=== PATIENT | male | born 1975 | race Caucasian/White ===

== ENCOUNTER 2021-12-12 20:59 | Inpatient (IN) ==
[2021-12-12 21:38] LABS: Bilirubin,Urine Negative (Negative); Blood,Urine Negative (Negative); Clarity,Urine Clear (Clear); Color,Urine Light-Yellow (Yellow); Glucose,Urine (UA) Normal (Normal); Ketones,Urine Negative (Negative); Leukocyte Esterase,Urine Negative (Negative); Mucus,Urine Few per lpf (None-Few); Nitrite,Urine Negative (Negative); PH,Urine 6.5 pH Units (5.0-8.0); Protein,Urine 30 mg/dL (Neg-Trace); RBC,Urine 0-3 per hpf (0-3); Specific Gravity,Urine 1.021 (1.010-1.025); Sperm,Urine Present per hpf (None Seen); Urobilinogen,Urine Normal (Normal); WBC,Urine 0-3 per hpf (0-3)
[2021-12-12 21:41] LABS: Basophils % 0.6 %; Eosinophils % 0.5 %; Hemoglobin 14.6 g/dL (12.9-16.9); Immature Granulocytes % 0.8 % (0-4); Lymphocytes # 2.3 K/mcL (0.6-4.6); Lymphocytes % 35.2 %; Mean Corpuscular HGB Conc 35.6 g/dL (31.6-35.5); Mean Corpuscular Hemoglobin 31.3 pg (28.0-33.3); Mean Corpuscular Volume 87.8 fL (83.0-100.0); Mean Platelet Volume 9.3 fL (9.4-12.4); Monocytes # 0.5 K/mcL (0.0-1.3); Monocytes % 7.5 %; Neutrophils # 3.6 K/mcL (1.6-8.9); Platelet Count 319 K/mcL (140-400); Red Blood Count 4.67 M/mcL (4.19-5.50); Red Cell Distribution Width 13.1 % (11.5-14.5); Segmented Neutrophils % 55.4 %; White Blood Count 6.5 K/mcL (4.3-11.1)
[2021-12-12 21:44] LABS: Amphetamine Screen,Urine Negative ng/mL (Cutoff=1000); Barbiturate Screen,Urine Negative ng/mL (Cutoff=200); Benzodiazepines Screen,Urine Negative ng/mL (Cutoff=200); Cannabinoid Screen,Urine Negative ng/mL (Cutoff = 50); Cocaine Screen,Urine Negative ng/mL (Cutoff= 300); Opiate Screen,Urine Negative ng/mL (Cutoff=300); Phencyclidine Screen,Urine Negative ng/mL (Cutoff=25)
[2021-12-12 21:48] LABS: Estimated Average Glucose 111 mg/dl; Hemoglobin A1C 5.5 %
[2021-12-12 21:56] LABS: Acetaminophen < 10 mcg/mL (10-20); Alanine Aminotransferase 28 Units/L (7-52); Albumin 4.2 g/dL (3.5-5.7); Albumin/Globulin Ratio 1.6 (1.1-2.2); Alkaline Phosphatase 75 Units/L (34-104); Aspartate Amino Transferase 29 Units/L (13-39); BUN/Creatinine Ratio 18 (6-26); Bilirubin,Direct 0.1 mg/dL (0.0-0.2); Bilirubin,Indirect 0.3 mg/dL (0.0-1.0); Bilirubin,Total 0.4 mg/dL (0.3-1.0); Blood Urea Nitrogen 13 mg/dL (6-20); Calcium 8.7 mg/dL (8.6-10.3); Carbon Dioxide 27 mEq/L (23-29); Chloride 103 mEq/L (98-107); Chol/HDL Ratio 2.5 (0-4.9); Cholesterol 182 mg/dL (< 200); Ethanol 268 mg/dL (Less than 10); Globulin 2.6 g/dL (2.4-3.5); Glucose 111 mg/dL (70-105); HDL Cholesterol 74 mg/dL (40-59); LDL Cholesterol,Calculated 58 mg/dL (< 100); Osmolality,Calculated 289 (280-300); Potassium 3.3 mEq/L (3.5-5.1); Salicylate < 2.5 mg/dL (15.0-30.0); Sodium 139 mEq/L (136-145); Total Protein 6.8 g/dL (6.4-8.9); Triglycerides 251 mg/dL (< 150); eGFR For African Americans > 60 (> 60); eGFR For Non-African Americans > 60 (> 60)
[2021-12-12 23:51] LABS: Influenza A PCR Negative (Negative); Influenza B PCR Negative (Negative); Resp. Syncytial Virus PCR Negative (Negative); SARS-CoV-2 by PCR (In House) Negative (Negative)
[2021-12-13] MEDS ORDERED: diazePAM 5 MG TABLET PO ONE (09:45)
[2021-12-13] MEDS ORDERED: Naloxone 0.4 MG/ML INJ IVP PRN (10:46)
[2021-12-13] MEDS ORDERED: Ondansetron 4 MG/2 ML VIAL IVP PRN (10:46)
[2021-12-13] MEDS ORDERED: *HR* LORazepam 2 MG/ML VIAL IVP PRN ×2 (10:48)
[2021-12-13] MEDS: *HR* LORazepam 2 MG/ML VIAL IVP PRN ×2 (12:55→17:57)
[2021-12-13] MEDS: *HR* Heparin 5,000 UNIT/ML VIAL SQ SCH (18:08)
[2021-12-14] MEDS: *HR* Heparin 5,000 UNIT/ML VIAL SQ SCH ×2 (03:53→15:54)
[2021-12-14] MEDS: Thiamine (B-1) 100 MG TABLET PO SCH (08:45)
[2021-12-14] MEDS: Vitamin B Complex/Vit C/Vit E 1 EACH TABLET PO SCH (08:46)
[2021-12-14] MEDS: Folic Acid 1 MG TABLET PO SCH (08:46)
[2021-12-14] MEDS: *HR* LORazepam 2 MG/ML VIAL IVP PRN ×3 (10:46→21:44)
[2021-12-15] MEDS: *HR* Heparin 5,000 UNIT/ML VIAL SQ SCH ×2 (04:44→15:56)
[2021-12-15] MEDS: Thiamine (B-1) 100 MG TABLET PO SCH (10:18)
[2021-12-15] MEDS: Vitamin B Complex/Vit C/Vit E 1 EACH TABLET PO SCH (10:18)
[2021-12-15] MEDS: Folic Acid 1 MG TABLET PO SCH (10:18)
[2021-12-15] MEDS ORDERED: hydrOXYzine pamoate 25 MG CAPSULE PO PRN (13:37)
[2021-12-15] MEDS: lisinopriL 5 MG TABLET PO SCH (16:08)
[2021-12-15] MEDS ORDERED: *HR* Metoprolol 5 MG/5 ML VIAL IVP ONE (20:30)
[2021-12-16] MEDS: *HR* Heparin 5,000 UNIT/ML VIAL SQ SCH ×2 (06:12→15:55)
[2021-12-16] MEDS: Vitamin B Complex/Vit C/Vit E 1 EACH TABLET PO SCH (08:22)
[2021-12-16] MEDS: lisinopriL 5 MG TABLET PO SCH (08:22)
[2021-12-16] MEDS: Folic Acid 1 MG TABLET PO SCH (08:22)
[2021-12-16] MEDS: Thiamine (B-1) 100 MG TABLET PO SCH (08:22)
[2021-12-16 11:56] LABS: Influenza A PCR Negative (Negative); Influenza B PCR Negative (Negative); Resp. Syncytial Virus PCR Negative (Negative); SARS-CoV-2 by PCR (In House) Negative (Negative)
[2021-12-17 03:16] VITALS: TEMP 97.7
[2021-12-17] MEDS: *HR* Heparin 5,000 UNIT/ML VIAL SQ SCH (05:53)
[2021-12-17 08:02] VITALS: BP 142/89; PULSE 71; O2SAT 98
[2021-12-17] MEDS: lisinopriL 5 MG TABLET PO SCH (08:24)
[2021-12-17] MEDS: Folic Acid 1 MG TABLET PO SCH (08:25)
[2021-12-17] MEDS: Vitamin B Complex/Vit C/Vit E 1 EACH TABLET PO SCH (08:25)
[2021-12-17] MEDS: Thiamine (B-1) 100 MG TABLET PO SCH (08:25)
== END 2021-12-17 12:53 | disposition other institution (70) | DRG 775 ==
LOC: EMEROOARM 20:59 → 3BNU 20:59 → SUATTDRO 12-15 14:05
PROVIDERS: ADMIT Nurse Practitioner; ATTEND Nurse Practitioner